=== PATIENT | male | born 1995 | race Caucasian/White ===

== ENCOUNTER 2018-12-22 00:30 | Emergency (ER) | payer MEDICAID, SELFPAY ==
[2018-12-22 00:32] VITALS: BP 142/90; PULSE 94; RESP 18; TEMP 37.1; O2SAT 99; BMI 33.4
--- NOTE | 2018-12-22 00:58 | EKG12_ITS ---
Test Reason : SYNCOPE Blood Pressure : / mmHG Vent. Rate : 082 BPM Atrial Rate : 082 BPM P-R Int : 128 ms QRS Dur : 100 ms QT Int : 374 ms P-R-T Axes : 059 032 017 degrees QTc Int : 436 ms Normal sinus rhythm Nonspecific T wave abnormality Abnormal ECG Confirmed by CHIRAG BOSWELL ([id number]), editor at large YOBANI ASHBY ([id number]) on 12/22/2018 2:15:43 PM Referred By: TL Confirmed By:CHIRAG BOSWELL
--- NOTE | 2018-12-22 00:58 | CT_ITS ---
HISTORY: S/P SYNCOPE AFTER COUGHING, BLOOD TINGED SPUTUM, C/O RIGHT SIDE CHEST PAIN/RIB PAIN TECHNIQUE: Helically acquired images were obtained of the chest following the intravenous administration of 100ML ml of Isovue 370 Iodinated contrast. as per pulmonary angiogram protocol with 2D MIP reconstructions. A radiation dose optimization technique was used for this scan. COMPARISON: None FINDINGS: # of images incl. paperwork: 50 Lungs are clear but for trace basilar atelectasis. No effusions. Within the thoracic spinebony alignment is normal. Vertebral body height is normal. Facets are well aligned. No rib lesions are perceived. Heart is not enlarged. Thoracic aorta is normal. No aneurysms, stenoses, dissections, nor occlusions. No axillary or mediastinal adenopathy. No pulmonary emboli. Visualized portions of the upper abdomen are without identified acute pathology. CT/Chest WITH Contrast IMPRESSION: No pulmonary embolism, aortic aneurysm, or aortic dissection. Individualized dose optimization techniques were used for this CT. at 0135 Reported and signed by: Cyrus Harper MD Electronically Signed: Cyrus Harper MD at 1:34 EDT Tel , Service support ,
--- NOTE | 2018-12-22 00:58 | CT_ITS ---
HISTORY: SYNCOPE AFTER COUGHING TECHNIQUE: Multiple axial images were obtained of the brain without intravenous contrast. A radiation dose optimization technique was used for this scan. COMPARISON: CT scan of the brain from June 03, 2016. FINDINGS: # of images incl. paperwork: 258 There are is an abnormal diminished amount of mastoid air cells. Those that are present on the right are slightly opacified. There is bilateral middle year fluid surrounding the middle ear ossicles. Thickening of the tissues in the external auditory canals. The tissue within the external auditory canals is increased since the previous study. The fluid within the small amount of mastoid air cells is new. The fluid within the middle ears surrounding the middle ear ossicles is new. The skull appears to be slightly narrowed as it extends along the parietal bones towards the convexity. Trace disease within the right maxillary sinus, likely small mucous retention cyst. The remainder of the paranasal sinuses are clear. Findings cannot be assessed with nuclear new or not as the lowest portion of the right maxillary sinus was not imaged on the previous CT.. Brain volume is normal. Vargas-white differentiation is preserved. No hydrocephalus. No acute ischemia. No acute intracranial hemorrhage. CT/Brain/Head without Contrast IMPRESSION: No acute intracranial pathology perceived. The patient has developmentally very few mastoid air cells. And they are very medial within the sphenoid wing. There is bilateral mastoid air cell disease and bilateral middle ear disease and bilateral external auditory canal disease, possibly representing mastoiditis, otitis externa, and otitis media. These findings of soft tissue within these regions of the temporal bone and middle ear are new. ASPECT 10. Individualized dose optimization techniques were used for this CT. at 0143 Reported and signed by: Cyrus Harper MD Electronically Signed: Cyrus Harper MD at 1:42 EDT Tel , Service support ,
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
--- NOTE | 2018-12-22 00:59 | CT_ITS ---
HISTORY: SYNCOPE AFTER COUGHING TECHNIQUE: Helically acquired images were obtained of the cervical spine without contrast. 2D reformatted images were reviewed. A radiation dose optimization technique was used for this scan. COMPARISON: None FINDINGS: # of images incl. paperwork: 418 Bony alignment is normal. Disc heights and vertebral body heights are normal. Facets are well aligned. Prevertebral and paraspinal soft tissues are normal. No bones within the cervical spine are fractured. Visualized portion of lung apices are normal. CT/Spine Cervical without Contras IMPRESSION: Normal cervical spine CT. Individualized dose optimization techniques were used for this CT. at 0144 Reported and signed by: Cyrus Harper MD Electronically Signed: Cyrus Harper MD at 1:43 EDT Tel , Service support ,
[2018-12-22 01:07] LABS: Absolute Lymphocyte Count 2.39 X10^3/uL (0.83-4.51); Absolute Neutrophil Count 4.1 X10^3/uL (2.0-7.7); Basophil# 0.04 X10^3/uL; Basophil% 0.5 % (0-1); Eosinophil# 0.15 X10^3/uL; Hematocrit 47.5 % (40-54); Hemoglobin 15.6 g/dL (13.0-16.5); Lymphocyte # 2.39 X10^3/ul (4.0); Lymphocyte % 31.4 % (19-41); Mean Corp Hgb Conc 32.8 g/dL (32-36); Mean Corpuscular Hgb 28.3 pg (27.0-32.0); Mean Corpuscular Volume 86.1 fL (80-94); Monocyte# 0.88 X10^3/uL; Monocyte% 11.6 % (0-10); NRBC Flagged by Analyzer 0 % (0-5); Neutrophil # 4.11 X10^3/uL (2.7-7.7); Platelet Count 258 K/mm3 (150-450); RBC Distribution Width CV 12.1 % (11.6-14.6); RBC Distribution Width SD 37.8 fl (35.1-43.9); Red Blood Count 5.52 M/mm3 (4.6-6.2); White Blood Count 7.6 K/mm3 (4.4-11.0)
[2018-12-22 01:13] LABS: International Normalized Ratio 1.1; Prothrombin Time (Protime)PT. 13.7 SECONDS (11.7-14.9)
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
[2018-12-22 01:16] LABS: Anion Gap 6 (5-15); BUN 6 mg/dL (7-18); BUN/Creat Ratio 6.1 RATIO (10-20); Calcium,Total 8.9 mg/dL (8.5-10.1); Chloride 109 mmol/L (98-107); Creatinine, Serum 0.98 mg/dL (0.70-1.30); EST Glomerular Filtration Rate 99 mL/min (>60); Est Glom Filt Rate - Afr Amer 120 mL/min (>60); Estimated Creatinine Clearance 97.32 ml/min; Glucose 99 mg/dL (74-106); Potassium 3.6 mmol/L (3.5-5.1); Sodium Level 142 mmol/L (136-145)
[2018-12-22] MEDS: 0.9% Normal Saline 1,000 ML 150 ML IV (01:30)
[2018-12-22 02:02] VITALS: BP 122/73; PULSE 72; RESP 22; O2SAT 99
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
[2018-12-22 02:25] VITALS: BP 130/92
== END 2018-12-22 02:25 | disposition home or self-care (01) ==
PROVIDERS: Emergency Provider Emergency Medicine
DX: S09.90XA Unspecified injury of head, initial encounter (principal); R55 Syncope and collapse; S29.9XXA Unspecified injury of thorax, initial encounter; S80.02XA Contusion of left knee, initial encounter; S80.01XA Contusion of right knee, initial encounter; M54.2 Cervicalgia; V19.9XXA Pedal cyclist (driver) (passenger) injured in unspecified traffic accident, initial encounter; Y93.55 Activity, bike riding; Y92.9 Unspecified place or not applicable; F17.200 Nicotine dependence, unspecified, uncomplicated
CPT/HCPCS: 70450; 71260; 72125; 73564; 80048; 85025; 85610; 93005; 96360; 96361; 99284; J7030; Q9967; A4216

== ENCOUNTER 2018-12-31 01:24 | Emergency (ER) | payer MEDICAID, SELFPAY ==
[2018-12-31 01:25] VITALS: PULSE 60; RESP 16; TEMP 37; O2SAT 99
[2018-12-31 01:26] VITALS: BP 139/87; TEMP 37; BMI 33.7
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
--- NOTE | 2018-12-31 01:34 | ED.VIS.GEN ---
History of Present Illness Chief Complaint: Upper Extremity Injury Detail of Chief Complaint: Right hand injury Informant: Patient Onset: Weeks Context: Sudden Onset Current Severity: Mild Maximum Severity: Moderate Narrative: Patient presents with pain to the right hand and wrist area for the past 3 weeks after punching a door or a wall. He is right-hand dominant. He reports some paresthesias that seem to come and go. Past Medical History - Allergies and Home Meds Allergies/Adverse Reactions: Allergies amoxicillin Allergy (Verified 12/31/18 01:25) Other Primary Care Physician: Care Physician,No Primary [Primary Care Provider] - Prior records reviewed: Yes Past Medical History: - - Reviewed Smoking Status: Current every day smoker Review of Systems General: Denies: Chills, Fever Eyes: Denies: Visual changes - bilaterally ENT: Denies: Bilateral ear pain Respiratory: Denies: Dyspnea Gastrointestinal: Denies: Abdominal pain Musculoskeletal: Reports: Arthralgias, Extremity Pain Skin: Denies: Wounds Neurological: Reports: Parasthesia. Denies: Weakness Hematologic: Denies: Easy bruising Allergy: Denies: Uticaria Physical Exam Vital Signs/Narrative: Vital Signs Temp Pulse Resp BP Pulse Ox 12/31/18 01:26 98.6 F 139/87 H 12/31/18 01:25 98.6 F 60 16 99 Inital Vital Signs reviewed: Yes General: Well nourished ENT: Moist mucous membranes Cardiovascular: Regular rate, Regular rhythm Respiratory: No distress Extremities: - - Mild tenderness palpation around the right wrist and metacarpals. Full range of motion. Normal cap refill. No tenderness of the elbow or shoulder. Skin: - - Old scars noted but no recent injuries. Neurological: Alert, Oriented x3 Psychological: Normal affect Diagnostic/Tx/Re-eval Chest X-Ray - ED: Read by ED Physician, - - Right hand x-rays reveal no evidence of fracture. - Medical Decision Making Patient was treated with naproxen and ice pack. Test results discussed with him. He will be given an Bandar wrap and a prescription for naproxen. He will be referred to orthopedics if not improving. ED Disposition - Plan for ED Patient: Disposition: Home or Assisted Living Diagnosis: Contusion of right hand Instructions: CONTUSION, Upper Extremity Prescriptions: Naproxen [Naprosyn] 500 mg PO BID PRN PRN #20 tablet PRN Reason: Pain Referrals: Mio Jimenez DO [STAFF PHYSICIAN] - As Needed
[2018-12-31 02:25] VITALS: PULSE 80; RESP 16
== END 2018-12-31 02:25 | disposition home or self-care (01) ==
LOC: ED 02:19
PROVIDERS: Emergency Provider Emergency Medicine
DX: S60.221A Contusion of right hand, initial encounter (principal); R20.2 Paresthesia of skin; W22.8XXA Striking against or struck by other objects, initial encounter; Y93.9 Activity, unspecified; Y92.9 Unspecified place or not applicable; F17.200 Nicotine dependence, unspecified, uncomplicated
CPT/HCPCS: 73130; 99282

== ENCOUNTER 2019-01-05 22:43 | Emergency (ER) | payer MEDICAID, SELFPAY ==
[2019-01-05 22:43] VITALS: BP 126/80; PULSE 106; RESP 16; TEMP 36.6; O2SAT 96; BMI 33.3
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
[2019-01-05] MEDS: Ibuprofen 600 MG Tablet PO (23:37)
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
[2019-01-06 00:37] VITALS: RESP 16
== END 2019-01-06 00:38 | disposition home or self-care (01) ==
PROVIDERS: Emergency Provider Emergency Medicine
DX: S63.501A Unspecified sprain of right wrist, initial encounter (principal); S83.91XA Sprain of unspecified site of right knee, initial encounter; S93.401A Sprain of unspecified ligament of right ankle, initial encounter; S93.691A Other sprain of right foot, initial encounter; V86.99XA Unspecified occupant of other special all-terrain or other off-road motor vehicle injured in nontraffic accident, initial encounter; Y93.9 Activity, unspecified; Y92.9 Unspecified place or not applicable; F17.200 Nicotine dependence, unspecified, uncomplicated
CPT/HCPCS: 73110; 73564; 73610; 73630; 99283